=== PATIENT | female | born 1990 | race Caucasian/White ===

== ENCOUNTER → 2016-11-17 | Outpatient (CLI) | payer BC ==
[~2016-11-17] MED LIST: LEVO50TA10; ZOLP5TAB PO
[2016-11-17 11:55] LABS: URINE CENTRIFUGED VOLUME 12 mL
[2016-11-17 11:59] LABS: BASOPHILS % (AUTO) 0 % (0-2); EOSINOPHILS # (AUTO) 0.2 10^3uL; EOSINOPHILS % (AUTO) 2 % (0-4); LYMPHOCYTES # (AUTO) 1.8 X10^3; MEAN CORPUSCULAR HEMOGLOBIN 29.4 PG (26.0-34.0); MEAN CORPUSCULAR HGB CONC 33.3 g/dL (31.0-37.0); MEAN CORPUSCULAR VOLUME 88 FL (80-100); MEAN PLATELET VOLUME 10.3 FL (6.0-9.5); MONOCYTES # (AUTO) 0.5 X10^3; MONOCYTES % (AUTO) 5 % (3-11); NEUTROPHILS # (AUTO) 6.7 X10^3; NEUTROPHILS % (AUTO) 73 % (51-67); PLATELET COUNT 319 10^3uL (150-450); WHITE BLOOD COUNT 9.18 10^3uL (4.0-11.0)
[2016-11-17 12:11] LABS: ALBUMIN 4.4 g/dL (3.4-5.0); ANION GAP 15.7 MEQ/L (3-15); CALCULATED IONIZED CALCIUM 3.8 mg/dL (3.8-4.6)
== END ==
LOC: LAB 10:09 → EDSTATUS 11:21 → LAB 11:22
PROVIDERS: ATTEND Nurse Practitioner Family
DX: R10.2 Pelvic and perineal pain (principal); E03.4 Atrophy of thyroid (acquired)
CPT/HCPCS: 36415; 80053; 81015; 84443; 85025; 87210

== ENCOUNTER → 2016-11-18 | Outpatient (CLI) | payer BC ==
--- NOTE | 2016-11-18 18:14 | Diagnostic Imaging Report ---
INDICATION: Left-sided pelvic pain, dysfunctional uterine bleeding. TECHNIQUE: Multiple real time ott scale sonographic images were obtained of the pelvis transabdominally and endovaginally. CORRELATION STUDY: None FINDINGS: UTERUS/ENDOMETRIUM: Uterus measures 7.8 x 5.0 x 3.8 cm. Endometrial thickness is 4 mm. Uterus is retroverted. There is heterogeneous echotexture throughout the myometrium. There is focal masslike area at the fundal aspect at 2 x 1.6 x 2.3 cm. Vascularity is present. RIGHT OVARY: 3.8 x 3.0 x 2.7 cm. LEFT OVARY: 2.9 x 1.9 x 1.3 cm. Hypoechoic mass most compatible with cyst of the right ovary at 2 x 2.4 x 1.4 cm. Vascular flow is demonstrated to both ovaries. No significant free pelvic fluid. IMPRESSION: 1. Heterogeneous uterus with presence of more focal approximately 2 cm masslike area. While nonspecific, it may be reflective of a potential fibroid. 2. Endometrium unremarkable. 3. Likely physiologic right ovarian cyst. Dictated on workstation # [id number]
== END ==
LOC: RAD 12:51
PROVIDERS: ATTEND Nurse Practitioner Family
DX: R10.2 Pelvic and perineal pain (principal)
CPT/HCPCS: 76830; 76856